=== PATIENT | female | born 1970 | race Two or more races ===

== ENCOUNTER 2017-10-15 06:50 | Outpatient (CLI) | payer OTHER ==
[~2017-10-15 06:50] MED LIST: CIPRO500 MG PO; GILTUSS TR TAB1 EACH PO; MEDROLPACK PO; NAPR500T14; NEURONTIN300 MG PO; URIN D.S. TABLE1 TAB PO; ZANTAC300 MG PO; ZYRTEC10 MG PO
== END 2017-10-15 07:17 | disposition home or self-care (01) ==
LOC: LAB 06:50
DX: E34.8 Other specified endocrine disorders (principal); R53.81 Other malaise; E55.9 Vitamin D deficiency, unspecified; N95.1 Menopausal and female climacteric states; E03.8 Other specified hypothyroidism; E78.4 Other hyperlipidemia

== ENCOUNTER → 2018-02-01 | Emergency (ER) | payer OTHER ==
[~2018-02-01] VITALS: Ht 157.5 cm; Wt 56.7 kg
[~2018-02-01] MED LIST changes: +LEVAQUIN750 MG PO; +TUSSI PRES-B L120 M1 PO
== END | disposition home or self-care (01) ==
LOC: ER 10:44
DX: J06.9 Acute upper respiratory infection, unspecified (principal)

== ENCOUNTER 2019-02-02 09:12 | Outpatient (CLI) | payer OTHER | END 2019-02-03 06:40 | disposition home or self-care (01) | LOC: MAMO-SONO 09:12 | DX: Z12.31 Encounter for screening mammogram for malignant neoplasm of breast (principal); Z87.898 Personal history of other specified conditions; N63.10 Unspecified lump in the right breast, unspecified quadrant; N63.20 Unspecified lump in the left breast, unspecified quadrant ==

== ENCOUNTER 2019-02-16 07:03 | Outpatient (CLI) | payer OTHER | END 2019-02-16 08:21 | disposition home or self-care (01) | LOC: LAB 07:03 | DX: Z13.0 Encounter for screening for diseases of the blood and blood-forming organs and certain disorders involving the immune mechanism (principal); Z13.1 Encounter for screening for diabetes mellitus; Z09 Encounter for follow-up examination after completed treatment for conditions other than malignant neoplasm ==

== ENCOUNTER → 2019-10-16 06:14 | Outpatient (CLI) | payer OTHER | END | disposition home or self-care (01) | LOC: LAB 06:14 | PROVIDERS: ATTEND Internal Medicine | DX: I10 Essential (primary) hypertension (principal); M54.5 Low back pain; Z01.810 Encounter for preprocedural cardiovascular examination; E03.8 Other specified hypothyroidism; M89.9 Disorder of bone, unspecified; Z12.11 Encounter for screening for malignant neoplasm of colon; Z13.820 Encounter for screening for osteoporosis ==

== ENCOUNTER 2019-10-19 12:53 | Outpatient (CLI) | payer OTHER | END 2019-10-19 13:31 | disposition home or self-care (01) | LOC: NUCLEAR 12:53 | PROVIDERS: ATTEND Internal Medicine | DX: M81.0 Age-related osteoporosis without current pathological fracture (principal); E78.89 Other lipoprotein metabolism disorders; M54.5 Low back pain; Z01.810 Encounter for preprocedural cardiovascular examination; I10 Essential (primary) hypertension; E03.8 Other specified hypothyroidism; Z13.820 Encounter for screening for osteoporosis; M89.8X0 Other specified disorders of bone, multiple sites; Z12.11 Encounter for screening for malignant neoplasm of colon ==

== ENCOUNTER → 2020-01-11 07:06 | Outpatient (CLI) | payer OTHER | END | disposition home or self-care (01) | LOC: LAB 07:06 | PROVIDERS: ATTEND Internal Medicine | DX: I10 Essential (primary) hypertension (principal); M54.5 Low back pain ==

== ENCOUNTER 2020-05-03 07:38 | Outpatient (CLI) | payer OTHER | END 2020-05-03 07:47 | disposition home or self-care (01) | LOC: LAB 07:38 | PROVIDERS: ATTEND Internal Medicine | DX: I10 Essential (primary) hypertension (principal); M54.5 Low back pain; Z20.828 Contact with and (suspected) exposure to other viral communicable diseases; Z03.818 Encounter for observation for suspected exposure to other biological agents ruled out ==

== ENCOUNTER → 2020-07-25 | Outpatient (CLI) | payer OTHER | END | disposition home or self-care (01) | LOC: MAMO-SONO 09:01 | PROVIDERS: ATTEND Internal Medicine | DX: Z12.31 Encounter for screening mammogram for malignant neoplasm of breast (principal); N63.0 Unspecified lump in unspecified breast; M54.5 Low back pain; I10 Essential (primary) hypertension; Z20.828 Contact with and (suspected) exposure to other viral communicable diseases; Z03.818 Encounter for observation for suspected exposure to other biological agents ruled out; M23.90 Unspecified internal derangement of unspecified knee ==

== ENCOUNTER → 2020-08-08 06:52 | Outpatient (CLI) | payer OTHER | END | disposition home or self-care (01) | LOC: LAB 06:52 | PROVIDERS: ATTEND Internal Medicine | DX: I10 Essential (primary) hypertension (principal); M54.5 Low back pain; Z20.828 Contact with and (suspected) exposure to other viral communicable diseases; Z03.818 Encounter for observation for suspected exposure to other biological agents ruled out; M23.90 Unspecified internal derangement of unspecified knee ==

== ENCOUNTER 2021-02-27 12:32 | Outpatient (CLI) | payer OTHER | END 2021-02-27 12:39 | disposition home or self-care (01) | LOC: SONOGRAMA 12:32 | DX: N60.11 Diffuse cystic mastopathy of right breast (principal); N60.12 Diffuse cystic mastopathy of left breast ==

== ENCOUNTER → 2021-07-28 | Emergency (ER) | payer OTHER ==
[~2021-07-28] VITALS: Ht 154.9 cm; Wt 49.9 kg
[~2021-07-28] MED LIST changes: +KETO10TA2 PO; +NORFLEX100MG PO
== END | disposition home or self-care (01) ==
LOC: ER 10:49
DX: M54.50 Low back pain, unspecified (principal)

== ENCOUNTER 2021-08-28 07:20 | Outpatient (CLI) | payer OTHER | END 2021-08-28 07:32 | disposition home or self-care (01) | LOC: LAB 07:20 | PROVIDERS: ATTEND Emergency Medicine Pediatric Emergency Medicine | DX: I10 Essential (primary) hypertension (principal); M54.59 Other low back pain; M23.90 Unspecified internal derangement of unspecified knee; E55.9 Vitamin D deficiency, unspecified; E78.9 Disorder of lipoprotein metabolism, unspecified; Z12.31 Encounter for screening mammogram for malignant neoplasm of breast ==

== ENCOUNTER 2021-09-04 08:55 | Outpatient (CLI) | payer OTHER | END 2021-09-04 09:00 | disposition home or self-care (01) | LOC: LAB 08:55 | DX: N91.5 Oligomenorrhea, unspecified (principal) ==

== ENCOUNTER 2021-09-04 09:22 | Outpatient (CLI) | payer OTHER | END 2021-09-04 09:32 | disposition home or self-care (01) | LOC: PPH VACUNA 09:22 | PROVIDERS: ATTEND Emergency Medicine Pediatric Emergency Medicine | DX: Z23 Encounter for immunization (principal) ==

== ENCOUNTER 2021-10-21 13:38 | Outpatient (CLI) | payer OTHER | END 2021-10-21 13:45 | disposition home or self-care (01) | LOC: CIR.AMB 13:38 → LAB 13:38 | PROVIDERS: ATTEND Emergency Medicine Pediatric Emergency Medicine | DX: N95.1 Menopausal and female climacteric states (principal) ==

== ENCOUNTER 2021-12-25 08:35 | Outpatient (CLI) | payer OTHER | END 2021-12-25 09:39 | disposition home or self-care (01) | LOC: LAB 08:35 | PROVIDERS: ATTEND Internal Medicine | DX: I10 Essential (primary) hypertension (principal); M54.50 Low back pain, unspecified; M23.90 Unspecified internal derangement of unspecified knee; E55.9 Vitamin D deficiency, unspecified; E78.9 Disorder of lipoprotein metabolism, unspecified; Z12.31 Encounter for screening mammogram for malignant neoplasm of breast ==

== ENCOUNTER 2022-01-01 09:00 | Outpatient (CLI) | payer OTHER | END 2022-01-01 09:09 | disposition home or self-care (01) | LOC: MAMO-SONO 09:00 | PROVIDERS: ATTEND Internal Medicine | DX: N60.11 Diffuse cystic mastopathy of right breast (principal); N60.12 Diffuse cystic mastopathy of left breast; Z12.31 Encounter for screening mammogram for malignant neoplasm of breast; I10 Essential (primary) hypertension; M54.50 Low back pain, unspecified; M23.90 Unspecified internal derangement of unspecified knee; E55.9 Vitamin D deficiency, unspecified; E78.9 Disorder of lipoprotein metabolism, unspecified ==

== ENCOUNTER 2022-02-18 16:26 | Outpatient (CLI) | payer OTHER | END 2022-02-18 16:33 | disposition home or self-care (01) | LOC: LAB 16:26 | DX: D50.8 Other iron deficiency anemias (principal) ==

== ENCOUNTER 2022-04-13 07:29 | Outpatient (CLI) | payer OTHER | END 2022-04-13 07:30 | disposition home or self-care (01) | LOC: LAB 07:29 | DX: I10 Essential (primary) hypertension (principal); M54.50 Low back pain, unspecified; M23.90 Unspecified internal derangement of unspecified knee; E55.9 Vitamin D deficiency, unspecified; E78.9 Disorder of lipoprotein metabolism, unspecified; Z12.31 Encounter for screening mammogram for malignant neoplasm of breast ==

== ENCOUNTER 2022-10-01 07:27 | Outpatient (CLI) | payer OTHER | END 2022-10-01 07:31 | disposition home or self-care (01) | LOC: LAB 07:27 | DX: M54.59 Other low back pain (principal); I10 Essential (primary) hypertension; M23.90 Unspecified internal derangement of unspecified knee; E55.9 Vitamin D deficiency, unspecified; E78.9 Disorder of lipoprotein metabolism, unspecified; Z12.31 Encounter for screening mammogram for malignant neoplasm of breast; N95.1 Menopausal and female climacteric states ==

== ENCOUNTER 2023-01-18 07:20 | Outpatient (CLI) | payer OTHER ==
[2023-01-18 08:05] LABS: HEMATOCRIT 43.3 % (36.0-45.00); MEAN CELL VOLUME 88.2 fL (80.00-100.00); MEAN CORPUSCULAR HEMOGLOBIN 28.5 pg (27.00-32.0); MEAN CORPUSCULAR HGB CONC 32.3 g/dl (32.0-36.0); PLATELET COUNT 238 K/uL (150-450); RED CELL DISTRIBUTION WIDTH 13.7 % (11.5-14.5)
[2023-01-18 08:07] LABS: PH,URINE 5.5 (5.0-8.0); URINE APPEARANCE Clear; URINE BILIRRUBIN Negative (NEGATIVE); URINE BLOOD Negative; URINE COLOR Yellow; URINE GLUCOSE Negative (NEGATIVE); URINE LEUKOCYTE Trace; URINE NITRATE Positive; URINE PROTEIN Negative (NEGATIVE); URINE UROBILINOGEN 0.2 E.U./dl
[2023-01-18 08:11] LABS: URINE EPITHELIAL CELLS 6.4 uL (0.0-38.8); URINE RBC 7.9 uL (0.0-20.8); URINE WBC 59.4 uL (0.0-23.2)
[2023-01-18 08:16] LABS: URINE BACTERIA > 9821.5 uL (0.0-1933)
[2023-01-18 08:38] LABS: ALBUMIN 3.7 gm/dL (3.4-5.0); BILIRUBIN TOTAL 0.82 mg/dL (0.3-1.2); CALCIUM 8.9 mg/dL (8.5-10.1); CHOL HDL RATIO 3.3 (0-5.0); CREATININE SERUM 0.73 mg/dL (0.55-1.02); GFR 83.08; GLOBULINA 3.1 G/DL (2.4-3.5); POTASSIUM 4.57 mEq/L (3.5-5.1); TOTAL PROTEIN 6.8 gm/dL (6.4-8.2)
== END 2023-01-18 07:24 | disposition home or self-care (01) ==
LOC: LAB 07:20
PROVIDERS: ATTEND Internal Medicine
DX: I10 Essential (primary) hypertension (principal); M23.90 Unspecified internal derangement of unspecified knee; E55.9 Vitamin D deficiency, unspecified; E78.9 Disorder of lipoprotein metabolism, unspecified; N30.90 Cystitis, unspecified without hematuria; Z12.31 Encounter for screening mammogram for malignant neoplasm of breast

== ENCOUNTER 2023-05-13 09:36 | Outpatient (CLI) | payer OTHER ==
[~2023-05-13 09:36] MED LIST changes: +CYCLOBENZAPRINE10 MG PO; +DICLOFENAC POTA50 MG PO
[2023-05-13 10:21] LABS: URINE APPEARANCE Cloudy; URINE BILIRRUBIN Negative (NEGATIVE); URINE BLOOD Negative; URINE COLOR Yellow; URINE GLUCOSE Negative (NEGATIVE); URINE LEUKOCYTE Trace; URINE NITRATE Positive; URINE PROTEIN Negative (NEGATIVE); URINE UROBILINOGEN 0.2 E.U./dl
[2023-05-13 10:23] LABS: URINE EPITHELIAL CELLS 16.9 uL (0.0-38.8); URINE WBC 64.4 uL (0.0-23.2)
[2023-05-13 10:30] LABS: URINE BACTERIA > 9821.5 uL (0.0-1933)
[2023-05-13 10:36] LABS: HEMATOCRIT 41.9 % (36.0-45.00); MEAN CORPUSCULAR HEMOGLOBIN 29.6 pg (27.00-32.0); MEAN CORPUSCULAR HGB CONC 33.3 g/dl (32.0-36.0); PLATELET COUNT 222 K/uL (150-450); RED BLOOD COUNT 4.71 M/uL (4.00-6.00); RED CELL DISTRIBUTION WIDTH 13.7 % (11.5-14.5)
[2023-05-13 11:29] LABS: ALBUMIN 3.6 gm/dL (3.4-5.0); BILIRUBIN TOTAL 0.76 mg/dL (0.3-1.2); CALCIUM 8.9 mg/dL (8.5-10.1); CHOL HDL RATIO 3.4 (0-5.0); CREATININE SERUM 0.69 mg/dL (0.55-1.02); GFR 88.33; GLOBULINA 3.1 G/DL (2.4-3.5); PHOSPHOROUS 3.3 mg/dL (2.5-4.9); POTASSIUM 4.99 mEq/L (3.5-5.1); TOTAL PROTEIN 6.7 gm/dL (6.4-8.2)
== END 2023-05-13 09:38 | disposition home or self-care (01) ==
LOC: LAB 09:36
PROVIDERS: ATTEND Internal Medicine
DX: I10 Essential (primary) hypertension (principal); M54.50 Low back pain, unspecified; E55.9 Vitamin D deficiency, unspecified; E78.9 Disorder of lipoprotein metabolism, unspecified; E11.51 Type 2 diabetes mellitus with diabetic peripheral angiopathy without gangrene; E11.9 Type 2 diabetes mellitus without complications; Z12.31 Encounter for screening mammogram for malignant neoplasm of breast

== ENCOUNTER 2023-06-26 10:18 | Outpatient (CLI) | payer OTHER ==
[2023-06-26 11:28] LABS: HEMATOCRIT 42.8 % (36.0-45.00); HEMOGLOBIN 14.6 g/dL (12.0-15.00); MEAN CELL VOLUME 89.3 fL (80.00-100.00); MEAN CORPUSCULAR HEMOGLOBIN 30.6 pg (27.00-32.0); MEAN CORPUSCULAR HGB CONC 34.2 g/dl (32.0-36.0); PLATELET COUNT 229 K/uL (150-450); RED BLOOD COUNT 4.79 M/uL (4.00-6.00); RED CELL DISTRIBUTION WIDTH 13.7 % (11.5-14.5)
[2023-06-26 11:32] LABS: PH,URINE 5.5 (5.0-8.0); URINE APPEARANCE Clear; URINE BILIRRUBIN Negative (NEGATIVE); URINE BLOOD Negative; URINE COLOR Yellow; URINE GLUCOSE Negative (NEGATIVE); URINE LEUKOCYTE Moderate; URINE NITRATE Positive; URINE PROTEIN Negative (NEGATIVE); URINE UROBILINOGEN 0.2 E.U./dl
[2023-06-26 11:34] LABS: URINE EPITHELIAL CELLS 21.1 uL (0.0-38.8); URINE WBC 473.9 uL (0.0-23.2)
[2023-06-26 11:36] LABS: URINE BACTERIA > 9821.5 uL (0.0-1933)
[2023-06-26 12:07] LABS: ALBUMIN 3.9 gm/dL (3.4-5.0); BILIRUBIN TOTAL 1.03 mg/dL (0.3-1.2); CALCIUM 9.3 mg/dL (8.5-10.1); CHOL HDL RATIO 3.5 (0-5.0); CREATININE SERUM 0.78 mg/dL (0.55-1.02); GFR 76.68; GLOBULINA 3.4 G/DL (2.4-3.5); POTASSIUM 5.23 mEq/L (3.5-5.1); T4 TOTAL 10.03 UG/DL (4.8-13.9); TOTAL PROTEIN 7.3 gm/dL (6.4-8.2); TSH 1.03 uIU/mL (0.358-3.74)
== END 2023-06-26 10:22 | disposition home or self-care (01) ==
LOC: LAB 10:18
PROVIDERS: ATTEND Internal Medicine
DX: I10 Essential (primary) hypertension (principal); E55.9 Vitamin D deficiency, unspecified; E78.9 Disorder of lipoprotein metabolism, unspecified; E11.51 Type 2 diabetes mellitus with diabetic peripheral angiopathy without gangrene; E11.9 Type 2 diabetes mellitus without complications; N39.0 Urinary tract infection, site not specified; Z12.31 Encounter for screening mammogram for malignant neoplasm of breast

== ENCOUNTER 2023-10-15 08:03 | Outpatient (CLI) | payer OTHER ==
[2023-10-15 08:51] LABS: HEMATOCRIT 42.6 % (36.0-45.00); HEMOGLOBIN 14.6 g/dL (12.0-15.00); MEAN CELL VOLUME 88.5 fL (80.00-100.00); MEAN CORPUSCULAR HEMOGLOBIN 30.3 pg (27.00-32.0); MEAN CORPUSCULAR HGB CONC 34.2 g/dl (32.0-36.0); PLATELET COUNT 258 K/uL (150-450); RED BLOOD COUNT 4.81 M/uL (4.00-6.00); RED CELL DISTRIBUTION WIDTH 14.2 % (11.5-14.5)
[2023-10-15 08:53] LABS: PH,URINE 5.5 (5.0-8.0); URINE APPEARANCE Cloudy; URINE BILIRRUBIN Negative (NEGATIVE); URINE BLOOD Negative; URINE COLOR Yellow; URINE GLUCOSE Negative (NEGATIVE); URINE LEUKOCYTE Moderate; URINE NITRATE Positive; URINE PROTEIN Negative (NEGATIVE); URINE UROBILINOGEN 0.2 E.U./dl
[2023-10-15 08:57] LABS: URINE RBC 5.3 uL (0.0-20.8); URINE WBC 96.7 uL (0.0-23.2)
[2023-10-15 09:07] LABS: URINE BACTERIA > 9821.5 uL (0.0-1933)
[2023-10-15 09:29] LABS: CALCIUM 9.2 mg/dL (8.5-10.1); CREATININE SERUM 0.62 mg/dL (0.55-1.02); GFR 99.93; POTASSIUM 4.93 mEq/L (3.5-5.1)
== END 2023-10-15 08:04 | disposition home or self-care (01) ==
LOC: LAB 08:03
PROVIDERS: ATTEND Internal Medicine
DX: E78.9 Disorder of lipoprotein metabolism, unspecified (principal); I10 Essential (primary) hypertension; E55.9 Vitamin D deficiency, unspecified; E11.51 Type 2 diabetes mellitus with diabetic peripheral angiopathy without gangrene; E11.9 Type 2 diabetes mellitus without complications; N39.0 Urinary tract infection, site not specified; N20.0 Calculus of kidney; Z12.31 Encounter for screening mammogram for malignant neoplasm of breast

== ENCOUNTER 2023-10-21 07:08 | Outpatient (CLI) | payer OTHER | END 2023-10-21 07:19 | disposition home or self-care (01) | LOC: RAD 07:08 | PROVIDERS: ATTEND Internal Medicine | DX: E55.9 Vitamin D deficiency, unspecified (principal); I10 Essential (primary) hypertension; E78.9 Disorder of lipoprotein metabolism, unspecified; E11.51 Type 2 diabetes mellitus with diabetic peripheral angiopathy without gangrene; E11.9 Type 2 diabetes mellitus without complications; N39.0 Urinary tract infection, site not specified; N20.0 Calculus of kidney; Z12.31 Encounter for screening mammogram for malignant neoplasm of breast ==

== ENCOUNTER 2024-06-08 10:22 | Outpatient (CLI) | payer OTHER | END 2024-06-09 08:08 | disposition home or self-care (01) | LOC: MAMO-SONO 10:22 | PROVIDERS: ATTEND Family Medicine | DX: N60.39 Fibrosclerosis of unspecified breast (principal); R92.2 Inconclusive mammogram ==

== ENCOUNTER 2024-10-12 10:29 | Outpatient (CLI) | payer OTHER | END 2024-10-12 10:37 | disposition home or self-care (01) | LOC: SONOGRAMA 10:29 | PROVIDERS: ATTEND Internal Medicine | DX: I10 Essential (primary) hypertension (principal); E55.9 Vitamin D deficiency, unspecified; E78.9 Disorder of lipoprotein metabolism, unspecified; E11.51 Type 2 diabetes mellitus with diabetic peripheral angiopathy without gangrene; M75.111 Incomplete rotator cuff tear or rupture of right shoulder, not specified as traumatic; Z12.31 Encounter for screening mammogram for malignant neoplasm of breast; M25.511 Pain in right shoulder ==

== ENCOUNTER 2024-11-17 07:19 | Outpatient (CLI) | payer OTHER | END 2024-11-17 07:28 | disposition home or self-care (01) | LOC: SONOGRAMA 07:19 | PROVIDERS: ATTEND Internal Medicine | DX: K80.20 Calculus of gallbladder without cholecystitis without obstruction (principal); Z12.31 Encounter for screening mammogram for malignant neoplasm of breast; I10 Essential (primary) hypertension; E55.9 Vitamin D deficiency, unspecified; E78.9 Disorder of lipoprotein metabolism, unspecified; E11.51 Type 2 diabetes mellitus with diabetic peripheral angiopathy without gangrene; M25.511 Pain in right shoulder; M75.111 Incomplete rotator cuff tear or rupture of right shoulder, not specified as traumatic; E11.69 Type 2 diabetes mellitus with other specified complication; R73.03 Prediabetes ==

== ENCOUNTER 2024-12-25 11:30 | Outpatient (CLI) | payer OTHER | END 2024-12-25 11:36 | disposition home or self-care (01) | LOC: RAD 11:30 | PROVIDERS: ATTEND Internal Medicine | DX: I10 Essential (primary) hypertension (principal) ==